=== PATIENT | female | born 1935 | race Caucasian/White ===

== ENCOUNTER → 2016-06-06 | Outpatient (CLI) | payer MEDICARE, OTHER ==
[2016-06-06 13:42] LABS: HEMOGLOBIN 13.4 g/dL (12.2-16.2); LYMPH # 1.4 K/mm3 (0.7-4.5); LYMPH % 21.8 % (10-50.0)
[2016-06-06 15:28] LABS: BUN 17 mg/dL (7-18)
[2016-06-06 15:31] LABS: GFR (ESTIMATED) 43 ML/MIN (59-)
== END ==
LOC: CARL-LAB 10:29
PROVIDERS: Internal Medicine Adolescent Medicine
DX: I48.91 Unspecified atrial fibrillation (principal); E78.5 Hyperlipidemia, unspecified